=== PATIENT | male | born 1965 | race Caucasian/White ===

== ENCOUNTER 2017-05-07 02:19 | Emergency (ER) | payer BC ==
[2017-05-07 02:30] VITALS: BP 112/67; PULSE 66; TEMP 97.7; BMI 25.7
[2017-05-07] MEDS ORDERED: DIPHTH,PERTUSS(ACELL),TET 0.5 ML DISP.SYRIN IM ONE (03:39)
[2017-05-07] MEDS ORDERED: CEPHALEXIN MONOHYDRATE 500 MG CAPSULE (UD) PO ONE (03:41)
--- NOTE | 2017-05-07 03:43 | PDOC ---
History of Present Illness - General Chief Complaint: Injury Stated Complaint: FALL Time Seen by Provider: 05/07/17 02:42 History Source: Patient Exam Limitations: No Limitations - History of Present Illness Initial Comments: 05/07/17 03:43 This is a 51-year-old male brought in by his for evaluation of a laceration. Patient was carrying some heavy objects when he tripped and fell hitting his left side of his head and face. Patient was wearing glasses that resulted in some jagged lacerations to the left side of his eye and his left eyebrow. Patient denies any passing out. He said he was not nauseous T no headache no blurry vision no neurological complaints. Patient denies any neck pain or any other injury. Patient's last tetanus is unknown PAST MEDICAL HISTORY: no significant history PAST SURGICAL HISTORY: no significant history FAMILY HISTORY: no pertinant history SOCIAL HISTORY: Pt lives with family and is employed. MEDICATIONS: reviewed ALLERGIES: As per nursing notes Review of Systems General: No fevers or chills, no weakness, no weight loss HEENT: No change in vision. No sore throat,. No ear pain, + lacerations of face CardioVascular: No chest pain or shortness of breath Respiratory:No cough, or wheezing. Gastrointestinal: no nausea, vomitting, diarrhea or constipation, No rectal bleeding Genitourinary: No dysuria, hematuria, or frequency Musculoskeletal: No joint or muscle pain or swelling Neurologic: No headache, vertigo, dizziness or loss of consciousness Psychiatric: nor depression Skin: No rashes or easy bruising Endocrine: no increased thirst or abnormal weight change Allergic: no skin or latex allergy All other systems reviewed and normal Exam: General: Well-nourished well-developed individual, no acute distres Head: There is a contusion of the left side of the face. There is no tenderness on palpation of the bones of the orbits, forehead left zygoma or TMJ HEENT: Throat: Normal, tonsils normal, no erythema or exudate Neck: Supple, no meningeal signs, no lymphadenopathy Eyes::Pupils equal reactive and round, extraocular motion intact, there is a contusion of the left eyelid with ecchymosis and swelling. Face: There are 2 lacerations of the face laceration #1 is a V-shaped laceration that is the total length of about 2 cm a portion of the tip of the V laceration appears to have lost vascularity to it and most likely will not survive, Laceration #2 is of the left eyebrow extending over to the left side of the face it is approximately 4 cm in length. It is irregular and somewhat curvilinear Chest: Nontender to palpation Cardiac: S1-S2 normal, regular rate and rhythm, no murmurs rubs or gallops Respiratory: Lungs clear to auscultation bilateral Abdomen: Soft, nondistended, normal bowel sounds, nontender to palpation diffusely Extremities: Warm, dry, no cyanosis, clubbing, or edema there is some abrasions over the right hand second and third knuckles with no laceration there is no bony tenderness of the hand or fingers Skin: No rashes Neuro: Alert and oriented x3, CN II - XII intact, nonfocal exam with normal strength, normal sensation, normal reflexes, normal gait, Psych: Normal mood and affect Procedure note complex laceration repair: Both lacerations were anesthetized with lidocaine 1% with no epi Lacerations were cleaned with peroxide and saline Laceration #1 V-shaped laceration was closed with a total of 8 sutures of 6-0 Ethilon Laceration #2 of the eyelid was closed with a total of 10 sutures of 6-0 Ethilon Post laceration repair sterile bacitracin and sterile dressing were applied Patient was given a tetanus Assessment and plan: This is a 51-year-old male who comes in status post trip and fall hitting his face resulting in lacerations to his facial abrasions to his hand. Patient's lacerations were cleaned and closed. Patient was given tetanus and started on antibiotics to prevent infection. Patient was discharged home with his who well check on him tonight and he will follow-up with his primary care doctor for suture removal or return to the ED Past History - Past Medical History Allergies/Adverse Reactions: Allergies Allergy/AdvReac Type Severity Reaction Status Date / Time No Known Allergies Allergy Unverified 05/07/17 02:21 Home Medications: Ambulatory Orders Cephalexin Monohydrate [Keflex -] 500 mg PO QID #20 capsule 05/07/17 Levothyroxine [Synthroid -] 150 mcg PO DAILY 05/07/17 COPD: No Thyroid Disease: Yes (HASHIMOTOS) - Suicide/Smoking/Psychosocial Hx Smoking History: Never smoked *Physical Exam - Vital Signs Last Vital Signs Temp Pulse Resp BP Pulse Ox 97.7 F 66 16 112/67 95 05/07/17 02:22 05/07/17 02:22 05/07/17 02:22 05/07/17 02:22 05/07/17 02:22 *DC/Admit/Observation/Transfer Diagnosis at time of Disposition: Facial laceration Qualifiers: Encounter type: initial encounter Qualified Code(s): S01.81XA - Laceration without foreign body of other part of head, initial encounter Eyebrow laceration Qualifiers: Encounter type: initial encounter Laterality: left Qualified Code(s): S01.112A - Laceration without foreign body of left eyelid and periocular area, initial encounter - Discharge Dispostion Disposition: HOME Condition at time of disposition: Stable - Prescriptions Prescriptions: Cephalexin Monohydrate [Keflex -] 500 mg PO QID #20 capsule - Referrals Referrals: Ally Lyon MD [Primary Care Provider] - - Patient Instructions Printed Discharge Instructions: DI for Laceration Repair -- Complex, DI for Closed Head Injury Additional Instructions: Clean the laceration once a day with some peroxide and reapply bacitracin and a sterile dressing for the next 2 days after that you can leave it open. Suture removal in one week Someone should check on you once tonight during the night. You should be arousable to your Normal level of arousability for that time of the night. If you have been vomiting, have had a seizure, or you are unable to be aroused or the person checking on you is concerned that there has been a change in your mental status they should call 911 and have you brought back to the emergency department. You can take Tylenol as needed for pain. Return to the emergency department immediately with ANY new, persistent or worsening symptoms. Continue any medications as previously prescribed by your physician. You should follow up with your primary doctor as soon as possible regarding today's emergency department visit. . Please make sure your doctor reviews the results of your emergency evaluation. Thank you for coming to the Emergency Department today for your care. It was a pleasure to see you today. Please note that your evaluation is INCOMPLETE until you follow-up with your doctor. - Post Discharge Activity
[2017-05-07] MEDS ORDERED: CEPHALEXIN MONOHYDRATE 500 MG CAPSULE (UD) ONE (03:44)
[2017-05-07] MEDS ORDERED: ACETAMINOPHEN 500 MG TABLET (FP) PO ONE (03:46)
[2017-05-07] MEDS ORDERED: ACETAMINOPHEN 500 MG TABLET (FP) ONE (03:47)
== END 2017-05-07 03:48 | disposition home or self-care (01) ==
LOC: FER 02:19
PROC: 3E0234Z Introduction of Serum, Toxoid and Vaccine into Muscle, Percutaneous Approach (ICD-10-PCS; principal; 2017-05-07)
DX: S01.81XA Laceration without foreign body of other part of head, initial encounter (principal); S01.112A Laceration without foreign body of left eyelid and periocular area, initial encounter; W18.39XA Other fall on same level, initial encounter; Y93.89 Activity, other specified; Y92.9 Unspecified place or not applicable; E06.3 Autoimmune thyroiditis
CPT/HCPCS: 90715; 99281-25

== ENCOUNTER 2017-05-14 09:59 | Emergency (ER) | payer BC ==
[2017-05-14 10:04] VITALS: BP 134/76; PULSE 76; TEMP 97.4; BMI 25.7
--- NOTE | 2017-05-14 10:13 | PDOC ---
Suture Removal/Wound Check HPI - History of Present Illness Chief Complaint: Suture/Staple Removal(Here) Stated Complaint: SUTURE REMOVAL TO LF EYEBROW, NEAR LF EYE Time Seen by Provider: 05/14/17 10:12 History Source: Yes: Patient Exam Limitations: Yes: No Limitations Treated at: [facility] ED Date of Last ED visit: 05/07/17 - Previous ED Treatment Type of procedure performed on last visit: Yes: Laceration Repair Tetanus Immunization: Yes: Up to Date - Onset of Previous Treatment Date of Occurence: 05/07/17 Comment:: 51 yo M presents 7 days s/p laceration repair after a mechanical fall. Denies any symptoms since that time. No pain, headache, drainage from the wounds. No redness or fever. Past History - Past Medical History Allergies/Adverse Reactions: Allergies Allergy/AdvReac Type Severity Reaction Status Date / Time No Known Allergies Allergy Verified 05/14/17 10:00 Home Medications: Ambulatory Orders Cephalexin Monohydrate [Keflex -] 500 mg PO QID #20 capsule 05/07/17 Levothyroxine [Synthroid -] 150 mcg PO DAILY 05/07/17 COPD: No Thyroid Disease: Yes (HASHIMOTOS) - Suicide/Smoking/Psychosocial Hx Smoking History: Unknown if ever smoked Have you smoked in the past 12 months: No Suture Removal/Wound Check PE - Physical Exam Comments: GENERAL: Awake, alert, and fully oriented, in no acute distress HEAD: +Healing laceration to the L upper eyelid/temporal area. No drainage. No devitalized tissue. NEUROLOGICAL: Cranial nerves II through XII grossly intact. Normal speech, normal gait SKIN: Warm, Dry, normal turgor, no rashes or lesions noted. *Review of Systems - Review of Systems Able to Perform ROS?: Yes Comments:: GENERAL/CONSTITUTIONAL: No fever or chills. No weakness. HEAD, EYES, EARS, NOSE AND THROAT: No change in vision. No ear pain or discharge. No sore throat. SKIN: No rash NEUROLOGIC: No headache, vertigo, loss of consciousness, or change in strength/ sensation. Medical Decision Making - Medical Decision Making 05/14/17 10:17 Sutures removed with forceps and #11 blade without complication. Patient tolerated well. Stable for DC home. *DC/Admit/Observation/Transfer Diagnosis at time of Disposition: Visit for suture removal - Discharge Dispostion Disposition: HOME Condition at time of disposition: Stable Admit: No - Referrals - Patient Instructions Printed Discharge Instructions: DI for Suture Removal - Post Discharge Activity
== END 2017-05-14 10:22 | disposition home or self-care (01) ==
LOC: FER 09:59
DX: Z48.02 Encounter for removal of sutures (principal)
CPT/HCPCS: 99282-25